=== PATIENT | male | born 1990 | race Caucasian/White ===

== ENCOUNTER 2016-12-14 23:30 | Inpatient (IN) | payer MEDICAID ==
[2016-12-15] MEDS ORDERED: ZOLPIDEM TARTRATE 10 MG TABLET PO PRN (01:30)
[2016-12-15] MEDS ORDERED: HALOPERIDOL 5 MG TABLET PO PRN (01:30)
[2016-12-15 07:00] LABS: BASOPHILS % (AUTO) 0.4 % (0.0-2.0); EOSINOPHILS % (AUTO) 5.2 % (1.0-6.0); HEMATOCRIT 41.4 % (41-53); HEMOGLOBIN 13.9 g/dL (13.5-17.5); LYMPHOCYTES # (AUTO) 1.1 K/uL (1.0-4.8); LYMPHOCYTES % (AUTO) 30.7 % (22.0-44.0); MEAN CORPUSCULAR HEMOGLOBIN 31.9 pg (26.0-34.0); MEAN CORPUSCULAR HGB CONC 33.5 G/dL (31.0-37.0); MEAN CORPUSCULAR VOLUME 95 fL (80-100); MONOCYTES # (AUTO) 0.4 K/uL (0.1-1.0); MONOCYTES % (AUTO) 11.4 % (2.0-9.0); NEUTROPHILS % (AUTO) 52.3 % (40.0-70.0); PLATELET COUNT (AUTO) 280 K/uL (150-450); RED BLOOD CELL COUNT(AUTO) 4.35 MIL/uL (4.50-5.90); RED CELL DISTRIBUTION WIDTH 12.8 % (11.5-14.5); WHITE BLOOD COUNT (AUTO) 3.7 K/uL (4.5-11.0)
[2016-12-15 07:20] LABS: ALANINE AMINOTRANSFERASE 16 U/L (12-78); ALBUMIN 3.3 g/dL (3.4-5.0); ANION GAP 7 mmol/L (8-16); ASPARTATE AMINOTRANSFERASE 11 U/L (15-37); BILIRUBIN,TOTAL 0.3 mg/dL (0.1-1.0); CALCIUM, TOTAL 8.3 mg/dL (8.8-10.5); CARBON DIOXIDE 29 mmol/L (22-29); CHLORIDE 105 mmol/L (98-107); CREATININE 0.85 mg/dL (0.60-1.30); GLOMERULAR FILTR. RATE CALC > 60 mL/min (>60); POTASSIUM 4.2 mmol/L (3.5-5.1); SODIUM SERUM 141 mmol/L (136-145); TOTAL PROTEIN, SERUM 6.4 g/dL (6.4-8.2); UREA NITROGEN, BLOOD 12 mg/dL (7-18)
[2016-12-15] MEDS: LORazepam 2 MG TABLET PO PRN (10:47)
[2016-12-15 11:40] VITALS: BP 111/65
[2016-12-16] MEDS ORDERED: INFLUENZA VIRUS VACCINE QVS 2016-17 (3YR+)/PF 60 MCG/0.5 ML SYRINGE IM ONE (06:15)
[2016-12-16] MEDS ORDERED: IBUPROFEN 400 MG TABLET PO PRN (08:00)
[2016-12-16] MEDS ORDERED: ACETAMINOPHEN 325 MG TABLET PO PRN (08:00)
[2016-12-16 08:58] VITALS: BP 103/59
[2016-12-16] MEDS: HALOPERIDOL 5 MG TABLET PO SCH ×2 (09:50→16:54)
[2016-12-16] MEDS: BENZTROPINE MESYLATE 0.5 MG TABLET PO SCH ×2 (09:50→16:54)
[2016-12-16 16:22] VITALS: BP 110/62
[2016-12-16 20:38] VITALS: BP 121/67
[2016-12-16] MEDS: LORazepam 2 MG TABLET PO PRN (20:56)
[2016-12-16 21:38] VITALS: BP 119/75
[2016-12-16] MEDS ORDERED: OxyCODONE HCL/ACETAMINOPHEN 5-325 MG TABLET PO ONE (21:45)
[2016-12-16] MEDS ORDERED: BENZOCAINE 10% 7 GM GEL TP PRN (21:45)
[2016-12-17 07:34] LABS: HEMOGLOBIN A1C 5.2 % (4.5-6.2)
[2016-12-17 08:00] LABS: CHOL/HDL RATIO 2.2 (4.2-7.3); THYROID STIMULATING HORMONE 2.04 uIU/mL (0.36-3.74)
[2016-12-17 08:30] VITALS: BP 108/65
[2016-12-17] MEDS ORDERED: BENZ0.5T6 PO (10:22)
[2016-12-17] MEDS ORDERED: HALO5 PO (10:22)
[2016-12-17] MEDS: HALOPERIDOL 5 MG TABLET PO SCH (10:38)
[2016-12-17] MEDS: BENZTROPINE MESYLATE 0.5 MG TABLET PO SCH (10:38)
== END 2016-12-17 14:15 | disposition home or self-care (01) | DRG 751 ==
LOC: 3EC 23:30
PROVIDERS: ADMIT Psychiatry & Neurology Psychiatry; ATTEND Psychiatry & Neurology Psychiatry
DX: F29 Unspecified psychosis not due to a substance or known physiological condition (principal); R45.851 Suicidal ideations; F15.20 Other stimulant dependence, uncomplicated; F25.9 Schizoaffective disorder, unspecified; R45.850 Homicidal ideations; F60.3 Borderline personality disorder; F31.9 Bipolar disorder, unspecified; F41.9 Anxiety disorder, unspecified; F10.10 Alcohol abuse, uncomplicated; F17.200 Nicotine dependence, unspecified, uncomplicated; Z91.14 Patient's other noncompliance with medication regimen; Z59.0 Homelessness; Z88.2 Allergy status to sulfonamides; Z88.1 Allergy status to other antibiotic agents; Z71.41 Alcohol abuse counseling and surveillance of alcoholic; Z71.51 Drug abuse counseling and surveillance of drug abuser; Z28.21 Immunization not carried out because of patient refusal; Z62.819 Personal history of unspecified abuse in childhood
CPT/HCPCS: 83036; 84443

== ENCOUNTER 2017-01-12 18:00 | Inpatient (IN) | payer MEDICAID ==
[~2017-01-12] VITALS: Ht 175.3 cm; Wt 63.5 kg
[~2017-01-12 18:00] MED LIST: BENZ0.5T6 PO; HALO5 PO
[2017-01-12] MEDS ORDERED: LORazepam 2 MG/ML VIAL ONE (18:19)
[2017-01-12] MEDS ORDERED: HALOPERIDOL LACTATE 5 MG/ML VIAL ONE (18:19)
[2017-01-12] MEDS ORDERED: DiphenhydrAMINE HCL 50 MG/ML VIAL ONE (18:19)
[2017-01-12] MEDS ORDERED: LORazepam 2 MG/ML VIAL IM ONE (18:30)
[2017-01-12] MEDS ORDERED: HALOPERIDOL LACTATE 5 MG/ML VIAL IM ONE (18:30)
[2017-01-12] MEDS ORDERED: DiphenhydrAMINE HCL 50 MG/ML VIAL IM ONE (18:30)
[2017-01-12] MEDS ORDERED: ZOLPIDEM TARTRATE 10 MG TABLET PO PRN (19:30)
[2017-01-12] MEDS ORDERED: HALOPERIDOL 5 MG TABLET PO PRN (19:30)
[2017-01-12] MEDS ORDERED: LORazepam 2 MG TABLET PO PRN (19:30)
[2017-01-12 19:35] LABS: BASOPHILS % (AUTO) 0.5 % (0.0-2.0); EOSINOPHILS % (AUTO) 1.4 % (1.0-6.0); HEMATOCRIT 37.1 % (41-53); HEMOGLOBIN 12.4 g/dL (13.5-17.5); LYMPHOCYTES # (AUTO) 1.9 K/uL (1.0-4.8); MEAN CORPUSCULAR HEMOGLOBIN 31.9 pg (26.0-34.0); MEAN CORPUSCULAR HGB CONC 33.4 G/dL (31.0-37.0); MEAN CORPUSCULAR VOLUME 95 fL (80-100); MONOCYTES # (AUTO) 1.4 K/uL (0.1-1.0); MONOCYTES % (AUTO) 12.6 % (2.0-9.0); NEUTROPHILS # (AUTO) 7.3 K/uL (1.8-7.7); NEUTROPHILS % (AUTO) 67.5 % (40.0-70.0); PLATELET COUNT (AUTO) 394 K/uL (150-450); RED BLOOD CELL COUNT(AUTO) 3.88 MIL/uL (4.50-5.90); RED CELL DISTRIBUTION WIDTH 13.6 % (11.5-14.5); WHITE BLOOD COUNT (AUTO) 10.8 K/uL (4.5-11.0)
[2017-01-12 19:46] LABS: ANION GAP 10 mmol/L (8-16); CARBON DIOXIDE 28 mmol/L (22-29); CHLORIDE 101 mmol/L (98-107); CREATININE 1.01 mg/dL (0.60-1.30); GLOMERULAR FILTR. RATE CALC > 60 mL/min (>60); POTASSIUM 3.5 mmol/L (3.5-5.1); SODIUM SERUM 139 mmol/L (136-145); UREA NITROGEN, BLOOD 25 mg/dL (7-18)
[2017-01-12 19:52] LABS: ALANINE AMINOTRANSFERASE 29 U/L (12-78); ASPARTATE AMINOTRANSFERASE 30 U/L (15-37); BILIRUBIN,TOTAL 0.8 mg/dL (0.1-1.0); TOTAL PROTEIN, SERUM 7.2 g/dL (6.4-8.2)
[2017-01-12 20:37] LABS: APPEARANCE,URINE CLEAR (CLEAR); GLUCOSE, URINE (UA) NEGATIVE (NEGATIVE); KETONES,URINE 40 mg/dL (NEGATIVE); LEUKOCYTE ESTERASE ,URINE NEGATIVE (NEGATIVE); OCCULT BLOOD,URINE NEGATIVE (NEGATIVE); PROTEIN,URINE NEGATIVE (NEGATIVE)
[2017-01-12 20:39] LABS: ADD UA MICROSCOPIC NO
[2017-01-13 11:37] VITALS: BP 112/78
[2017-01-13] MEDS ORDERED: INFLUENZA VIRUS VACCINE QVS 2016-17 (3YR+)/PF 60 MCG/0.5 ML SYRINGE IM ONE (12:30)
[2017-01-13 16:18] VITALS: BP 118/68
[2017-01-13] MEDS: BENZTROPINE MESYLATE 0.5 MG TABLET PO SCH (22:05)
[2017-01-13] MEDS: HALOPERIDOL 5 MG TABLET PO SCH (22:05)
[2017-01-14 05:59] VITALS: BP 109/63
[2017-01-14 08:03] VITALS: BP 103/71
[2017-01-14] MEDS: HALOPERIDOL 5 MG TABLET PO SCH ×2 (09:01→16:26)
[2017-01-14] MEDS: BENZTROPINE MESYLATE 0.5 MG TABLET PO SCH ×2 (09:01→16:26)
[2017-01-14 16:21] VITALS: BP 131/79
[2017-01-14] MEDS ORDERED: IBUPROFEN 400 MG TABLET PO PRN (22:00)
[2017-01-14] MEDS ORDERED: ACETAMINOPHEN 325 MG TABLET PO PRN (22:00)
[2017-01-15] MEDS: FERROUS SULFATE 325 MG EC TABLET PO SCH ×2 (06:45→12:33)
[2017-01-15] MEDS: BENZTROPINE MESYLATE 0.5 MG TABLET PO SCH (08:12)
[2017-01-15] MEDS: HALOPERIDOL 5 MG TABLET PO SCH (08:13)
[2017-01-15 08:30] VITALS: BP 116/78
[2017-01-15 08:51] LABS: HEMOGLOBIN A1C 4.8 % (4.5-6.2)
[2017-01-15] MEDS ORDERED: FLUoxetine HCL 20 MG CAPSULE PO SCH (09:00)
[2017-01-15 09:26] LABS: CHOL/HDL RATIO 2.1 (4.2-7.3); THYROID STIMULATING HORMONE 0.81 uIU/mL (0.36-3.74)
[2017-01-15] MEDS ORDERED: FERR-89 PO (12:25)
== END 2017-01-15 13:09 | disposition home or self-care (01) | DRG 751 ==
LOC: EMS 18:03 → B3A 01-13 08:59
PROVIDERS: ADMIT Psychiatry & Neurology Psychiatry; ATTEND Psychiatry & Neurology Psychiatry
DX: F29 Unspecified psychosis not due to a substance or known physiological condition (principal); R45.851 Suicidal ideations; F15.20 Other stimulant dependence, uncomplicated; R45.850 Homicidal ideations; F20.9 Schizophrenia, unspecified; F41.9 Anxiety disorder, unspecified; F31.9 Bipolar disorder, unspecified; F17.210 Nicotine dependence, cigarettes, uncomplicated; D64.9 Anemia, unspecified; F10.10 Alcohol abuse, uncomplicated; Z59.0 Homelessness; Z88.1 Allergy status to other antibiotic agents; Z88.2 Allergy status to sulfonamides; Z79.899 Other long term (current) drug therapy; Z71.41 Alcohol abuse counseling and surveillance of alcoholic; Z71.6 Tobacco abuse counseling; Z28.21 Immunization not carried out because of patient refusal
CPT/HCPCS: 83036; 84443; 87081; 96372; 99285; G0480; J1200; J1630; J2060

== ENCOUNTER 2021-06-09 14:32 | Emergency (ER) | payer SELFPAY ==
[~2021-06-09] VITALS: Ht 175.3 cm; Wt 109.1 kg
[~2021-06-09 14:32] MED LIST changes: +BENZ0.5T44 PO; -BENZ0.5T6 PO; +FERR-89 PO; -HALO5 PO; +HALO5TAB2 PO
[2021-06-09 17:11] LABS: COVID AG,FIA SOURCE NASOPHARYNGEAL
[2021-06-09 18:05] VITALS: BP 132/67
== END 2021-06-09 18:13 | disposition home or self-care (01) ==
LOC: EMS 14:35
DX: A08.4 Viral intestinal infection, unspecified (principal); F31.9 Bipolar disorder, unspecified; F41.9 Anxiety disorder, unspecified; F20.9 Schizophrenia, unspecified; Z79.899 Other long term (current) drug therapy; Z88.2 Allergy status to sulfonamides; Z88.1 Allergy status to other antibiotic agents; Z20.822 Contact with and (suspected) exposure to COVID-19
CPT/HCPCS: 99283

== ENCOUNTER 2023-10-01 18:23 | Inpatient (IN) | payer MEDICAID ==
[~2023-10-01] VITALS: Ht 175.3 cm; Wt 68.0 kg
[~2023-10-01 18:23] MED LIST changes: -BENZ0.5T44 PO; +BENZ0.5T6 PO; -FERR-89 PO; +FERR325T27 PO
[2023-10-01 19:39] LABS: COVID AG,FIA SOURCE NASAL SWAB
[2023-10-01 19:45] LABS: PH,URINE DRUG SCREEN 5.5 (5.0-8.0)
[2023-10-01 19:50] LABS: ALCOHOL, URINE DRUG SCREEN NEGATIVE (NEGATIVE); AMPHET/METH SCREEN,URINE POSITIVE (NEGATIVE); BARBITURATE SCREEN, URINE NEGATIVE (NEGATIVE); BENZODIAZEPINES SCREEN,URINE NEGATIVE (NEGATIVE); CANNABINOID SCREEN,URINE POSITIVE (NEGATIVE); COCAINE SCREEN,URINE NEGATIVE (NEGATIVE); METHADONE SCREEN, URINE NEGATIVE (NEGATIVE); OPIATE SCREEN,URINE NEGATIVE (NEGATIVE); PHENCYCLIDINE SCREEN,URINE NEGATIVE (NEGATIVE)
[2023-10-01 19:58] LABS: SARS-COV2 (COVID) ANTIGEN,FIA Negative (Negative)
[2023-10-02] MEDS ORDERED: ZOLPIDEM TARTRATE 10 MG TABLET PO PRN (00:45)
[2023-10-02] MEDS: HALOPERIDOL 5 MG TABLET PO PRN (10:29)
[2023-10-02] MEDS: LORazepam 1 MG TABLET PO PRN (10:29)
[2023-10-02] MEDS ORDERED: OLANZapine 5 MG TABLET PO ONE ×2 (11:00→11:30)
[2023-10-02] MEDS ORDERED: LORazepam 2 MG TABLET PO ONE ×2 (11:00→11:30)
[2023-10-02 18:46] VITALS: BP 110/76; PULSE 76; RESP 18; TEMP 97.6; O2SAT 100
[2023-10-02] MEDS ORDERED: NALO4SPR NASAL (20:10)
[2023-10-02] MEDS ORDERED: OXCA150T27 PO (20:10)
[2023-10-02] MEDS ORDERED: BUSP30TA2 PO (20:10)
[2023-10-02] MEDS ORDERED: GABA-1181 PO (20:10)
[2023-10-02] MEDS ORDERED: ZIPR40CA38 PO (20:10)
[2023-10-02] MEDS ORDERED: BUPR1FIL3 SL (20:10)
[2023-10-02] MEDS ORDERED: PNEUMOCOCCAL VACCINE POLYVALENT 0.5 ML SYRINGE [PPSV23] IM. ONE (20:15)
[2023-10-02] MEDS ORDERED: INFLUENZA VIRUS VACCINE QVS 2023-24 (6MO+)/PF 60 MCG/0.5 ML SYRINGE IM. ONE (20:15)
[2023-10-02 20:19] VITALS: RESP 18
[2023-10-03] MEDS: LORazepam 1 MG TABLET PO PRN ×3 (08:28→17:36)
[2023-10-03] MEDS: HALOPERIDOL 5 MG TABLET PO PRN ×3 (08:28→17:36)
[2023-10-03 08:35] VITALS: BP 108/62; PULSE 97; RESP 18; TEMP 97.6; O2SAT 97
[2023-10-03 20:22] VITALS: BP 134/87; PULSE 85; RESP 19; TEMP 98.1; O2SAT 98
[2023-10-04] MEDS ORDERED: ZIPRASIDONE HCL 80 MG CAPSULE PO SCH (07:00)
[2023-10-04] MEDS ORDERED: BusPIRone HCL 15 MG TABLET PO SCH (09:00)
[2023-10-04] MEDS ORDERED: DIVALPROEX SODIUM 500 MG DR TABLET PO SCH (09:00)
[2023-10-04] MEDS ORDERED: LITHIUM CARBONATE 300 MG CAPSULE PO SCH (09:00)
[2023-10-04] MEDS ORDERED: BUSP15 PO (09:51)
[2023-10-04] MEDS ORDERED: DIVA-112 PO (09:57)
[2023-10-04] MEDS ORDERED: LITH300C3 PO (09:57)
[2023-10-04] MEDS ORDERED: ZIPR80CA9 PO (09:59)
== END 2023-10-04 10:30 | disposition home or self-care (01) | DRG 750 ==
LOC: EMS 18:24 → B2S 10-02 16:59
PROVIDERS: ADMIT Psychiatry & Neurology Psychiatry; ATTEND Psychiatry & Neurology Psychiatry
PROC: 2W38X2Z Immobilization of Right Upper Extremity using Cast (ICD-10-PCS; principal; 2023-10-02)
DX: F25.9 Schizoaffective disorder, unspecified (principal); R45.851 Suicidal ideations; S42.401A Unspecified fracture of lower end of right humerus, initial encounter for closed fracture; F10.90 Alcohol use, unspecified, uncomplicated; F19.10 Other psychoactive substance abuse, uncomplicated; G47.00 Insomnia, unspecified; I10 Essential (primary) hypertension; K59.00 Constipation, unspecified; W18.39XA Other fall on same level, initial encounter; Z20.822 Contact with and (suspected) exposure to COVID-19; F41.9 Anxiety disorder, unspecified; F31.9 Bipolar disorder, unspecified; Z87.891 Personal history of nicotine dependence; Z88.2 Allergy status to sulfonamides; Z79.899 Other long term (current) drug therapy; Y93.89 Activity, other specified; Y92.89 Other specified places as the place of occurrence of the external cause; Y99.8 Other external cause status
CPT/HCPCS: 29240; 80307

== ENCOUNTER 2024-02-08 12:53 | Emergency (ER) | payer MEDICAID ==
[~2024-02-08] VITALS: Ht 175.3 cm; Wt 79.5 kg
[~2024-02-08 12:53] MED LIST changes: -BENZ0.5T6 PO; +BUSP15 PO; +DIVA-112 PO; -FERR325T27 PO; -HALO5TAB2 PO; +LITH300C3 PO; +NALO4SPR NASAL; +OXCA150T27 PO; +ZIPR80CA9 PO
[2024-02-08] MEDS ORDERED: HYDR30CR3 TP (15:24)
[2024-02-08] MEDS ORDERED: CLOT15CR29 TP (15:24)
[2024-02-08] MEDS ORDERED: TRAM50TA5 PO (15:24)
[2024-02-08] MEDS ORDERED: IBUP-1554 PO (15:24)
[2024-02-08] MEDS ORDERED: ACET-66 PO (15:24)
[2024-02-08 15:45] VITALS: BP 142/82; PULSE 72; RESP 18; TEMP 98.4
== END 2024-02-08 15:57 | disposition home or self-care (01) ==
LOC: EMS 12:53
DX: S52.202A Unspecified fracture of shaft of left ulna, initial encounter for closed fracture (principal); K60.4 Rectal fistula; F32.9 Major depressive disorder, single episode, unspecified; L24.9 Irritant contact dermatitis, unspecified cause; F41.9 Anxiety disorder, unspecified; F17.210 Nicotine dependence, cigarettes, uncomplicated; F12.90 Cannabis use, unspecified, uncomplicated; Z88.1 Allergy status to other antibiotic agents; Z88.2 Allergy status to sulfonamides; X58.XXXA Exposure to other specified factors, initial encounter; Y93.89 Activity, other specified; Y92.89 Other specified places as the place of occurrence of the external cause; Y99.8 Other external cause status
CPT/HCPCS: 99283

== ENCOUNTER 2024-03-08 09:35 | Emergency (ER) | payer MEDICAID ==
[~2024-03-08] VITALS: Ht 175.3 cm; Wt 79.5 kg
[~2024-03-08 09:35] MED LIST changes: +ACET-66 PO; +CLOT15CR29 TP; +HYDR30CR3 TP; +IBUP-1554 PO; +TRAM50TA5 PO
[2024-03-08 10:06] VITALS: BP 150/97; PULSE 124; RESP 20; TEMP 98.4
[2024-03-08] MEDS ORDERED: BusPIRone HCL 15 MG TABLET PO ONE (11:00)
[2024-03-08] MEDS ORDERED: OXcarbazepine 300 MG TABLET PO ONE (11:00)
[2024-03-08] MEDS ORDERED: OXCA150T27 PO (11:05)
[2024-03-08] MEDS ORDERED: BUSP15 PO (11:05)
[2024-03-08] MEDS ORDERED: ZIPR80CA9 PO (11:05)
[2024-03-08] MEDS: LORazepam 2 MG TABLET PO ONE (11:12)
[2024-03-08] MEDS: ZIPRASIDONE HCL 40 MG CAPSULE PO ONE (11:13)
== END 2024-03-08 12:05 | disposition home or self-care (01) ==
LOC: EMS 09:35
DX: F20.9 Schizophrenia, unspecified (principal); F41.9 Anxiety disorder, unspecified; F15.10 Other stimulant abuse, uncomplicated; F31.9 Bipolar disorder, unspecified; F17.210 Nicotine dependence, cigarettes, uncomplicated; F12.90 Cannabis use, unspecified, uncomplicated; Z88.2 Allergy status to sulfonamides; Z88.1 Allergy status to other antibiotic agents
CPT/HCPCS: 99283

== ENCOUNTER 2024-03-16 13:12 | Inpatient (IN) | payer MEDICAID ==
[~2024-03-16] VITALS: Ht 175.3 cm; Wt 78.3 kg
[2024-03-16] MEDS: LORazepam 2 MG/ML VIAL IM ONE (13:37)
[2024-03-16 14:20] LABS: BASOPHILS % (AUTO) 0.6 % (0.0-2.0); EOSINOPHILS % (AUTO) 1.6 % (1.0-6.0); HEMATOCRIT 35.3 % (41-53); HEMOGLOBIN 11.9 g/dL (13.5-17.5); LYMPHOCYTES # (AUTO) 1.3 K/uL (1.0-4.8); LYMPHOCYTES % (AUTO) 12.8 % (22.0-44.0); MEAN CORPUSCULAR HEMOGLOBIN 31.9 pg (26.0-34.0); MEAN CORPUSCULAR HGB CONC 33.6 G/dL (31.0-37.0); MEAN CORPUSCULAR VOLUME 95 fL (80-100); MONOCYTES # (AUTO) 0.9 K/uL (0.1-1.0); NEUTROPHILS # (AUTO) 7.5 K/uL (1.8-7.7); PLATELET COUNT (AUTO) 459 K/uL (150-450); RED BLOOD CELL COUNT(AUTO) 3.72 MIL/uL (4.50-5.90); RED CELL DISTRIBUTION WIDTH 13.2 % (11.5-14.5); WHITE BLOOD COUNT (AUTO) 9.8 K/uL (4.5-11.0)
[2024-03-16 14:35] LABS: ANION GAP 12 mmol/L (8-16); CALCIUM, TOTAL 8.6 mg/dL (8.8-10.5); CARBON DIOXIDE 26 mmol/L (22-29); CHLORIDE 106 mmol/L (98-107); CREATININE 1.01 mg/dL (0.60-1.30); GLOMERULAR FILTR. RATE CALC > 60 mL/min (>60); GLUCOSE,RANDOM 74 mg/dL (70-110); POTASSIUM 3.7 mmol/L (3.5-5.1); SODIUM SERUM 144 mmol/L (136-145); UREA NITROGEN, BLOOD 17 mg/dL (7-18)
[2024-03-16 14:36] LABS: ALCOHOL, BLOOD (SERUM) < 3 mg/dL (0-10)
[2024-03-16] MEDS: DiphenhydrAMINE HCL 50 MG CAPSULE PO ONE (15:17)
[2024-03-16] MEDS: HALOPERIDOL 5 MG TABLET PO ONE (15:17)
[2024-03-16 16:29] LABS: COVID AG,FIA SOURCE NASAL SWAB
[2024-03-16 16:51] LABS: SARS-COV2 (COVID) ANTIGEN,FIA Negative (Negative)
[2024-03-16 23:20] VITALS: BP 141/67; PULSE 94; RESP 18; TEMP 97.8
[2024-03-17] MEDS ORDERED: IBUPROFEN 400 MG TABLET PO PRN (07:45)
[2024-03-17] MEDS ORDERED: CloNIDine HCL 0.1 MG TABLET PO PRN (07:45)
[2024-03-17] MEDS ORDERED: MAGNESIUM HYDROXIDE SUSPENSION 30 ML UDCUP PO PRN (07:45)
[2024-03-17] MEDS ORDERED: DOCUSATE SODIUM 100 MG CAPSULE PO PRN (07:45)
[2024-03-17] MEDS ORDERED: ALBUTEROL SULFATE HFA 90 MCG/PUFF 8 GM INHALER IH PRN (07:45)
[2024-03-17] MEDS ORDERED: PETROLATUM,WHITE 28 GM JELLY TP PRN (07:45)
[2024-03-17] MEDS ORDERED: MAG HYDROX/ALUMINUM HYD/SIMETH ES 30 ML SUSPENSION UDCUP PO PRN (07:45)
[2024-03-17] MEDS ORDERED: TraMADol HCL 50 MG TABLET PO PRN (07:45)
[2024-03-17] MEDS ORDERED: GuaiFENesin/D-METHORPHAN [SUGAR-FREE] 200-20MG/10 ML SYRUP UDCUP PO PRN (07:45)
[2024-03-17] MEDS ORDERED: ACETAMINOPHEN 325 MG TABLET PO PRN (07:45)
[2024-03-17] MEDS ORDERED: NICOTINE 14 MG/24 HOUR PATCH TD PRN (07:45)
[2024-03-17] MEDS ORDERED: LOPERAMIDE HCL 2 MG CAPSULE PO PRN (07:45)
[2024-03-17] MEDS: LORazepam 2 MG TABLET PO PRN (08:30)
[2024-03-17] MEDS: HYDROCORTISONE 2.5% 30 GM CREAM TP SCH (09:00)
[2024-03-17] MEDS: BACITRACIN 28 GM OINTMENT TP SCH (09:00)
[2024-03-17 10:43] VITALS: BP 103/50; PULSE 94; RESP 19; TEMP 98
[2024-03-17] MEDS: BusPIRone HCL 15 MG TABLET PO SCH (13:54)
[2024-03-17] MEDS: DIVALPROEX SODIUM 500 MG DR TABLET PO SCH (17:30)
[2024-03-17] MEDS: LITHIUM CARBONATE 300 MG CAPSULE PO SCH (17:31)
[2024-03-17] MEDS: ZIPRASIDONE HCL 80 MG CAPSULE PO SCH (17:36)
[2024-03-17] MEDS: HALOPERIDOL 5 MG TABLET PO PRN (20:17)
[2024-03-17 20:45] VITALS: BP 119/66; PULSE 94; RESP 18; TEMP 97.7
[2024-03-17] MEDS: ZOLPIDEM TARTRATE 10 MG TABLET PO PRN (21:18)
[2024-03-18] MEDS: ONDANSETRON HCL 4 MG TABLET PO PRN (07:46)
[2024-03-18 09:13] LABS: HEMOGLOBIN A1C 5.3 % (3.8-5.6)
[2024-03-18 09:19] LABS: CHOL/HDL RATIO 2.3 (4.2-7.3)
[2024-03-18 09:29] LABS: THYROID STIMULATING HORMONE 1.12 uIU/mL (0.36-3.74)
[2024-03-18 09:30] VITALS: BP 125/63; PULSE 62; RESP 19; TEMP 98
[2024-03-18 20:54] VITALS: RESP 18
[2024-03-19 09:00] VITALS: BP 117/80; PULSE 90; RESP 18; TEMP 97.8
[2024-03-19] MEDS ORDERED: ZIPR80CA9 PO (14:36)
[2024-03-19] MEDS ORDERED: BUSP15 PO (14:36)
[2024-03-19] MEDS ORDERED: DIVA-112 PO (14:36)
[2024-03-19] MEDS ORDERED: LITH300C3 PO (14:36)
== END 2024-03-19 18:28 | disposition home or self-care (01) | DRG 750 ==
LOC: EMS 13:12 → 3EC 19:40
PROVIDERS: ADMIT Psychiatry & Neurology Psychiatry; ATTEND Psychiatry & Neurology Psychiatry
PROC: 0HQ0XZZ Repair Scalp Skin, External Approach (ICD-10-PCS; principal; 2024-03-16)
PROC: GZHZZZZ Group Psychotherapy (ICD-10-PCS; 2024-03-17)
PROC: GZ51ZZZ Individual Psychotherapy, Behavioral (ICD-10-PCS; 2024-03-17)
DX: F25.0 Schizoaffective disorder, bipolar type (principal); D64.9 Anemia, unspecified; F15.10 Other stimulant abuse, uncomplicated; S01.01XA Laceration without foreign body of scalp, initial encounter; F41.9 Anxiety disorder, unspecified; Z20.822 Contact with and (suspected) exposure to COVID-19; Z87.891 Personal history of nicotine dependence; Z88.2 Allergy status to sulfonamides; W22.8XXA Striking against or struck by other objects, initial encounter; Y93.89 Activity, other specified; Y92.89 Other specified places as the place of occurrence of the external cause; Y99.8 Other external cause status
CPT/HCPCS: 70450; 80048; 80061; 83036; 84443; 85025; 99285; G0480; J2060; Q0162

== ENCOUNTER 2024-06-04 21:22 | Emergency (ER) | payer MEDICAID ==
[~2024-06-04] VITALS: Ht 172.7 cm; Wt 73.6 kg
[~2024-06-04 21:22] MED LIST changes: -ACET-66 PO; -CLOT15CR29 TP; -HYDR30CR3 TP; -IBUP-1554 PO; -NALO4SPR NASAL; -OXCA150T27 PO; -TRAM50TA5 PO
[2024-06-04 21:40] VITALS: BP 121/64; PULSE 121; RESP 16; TEMP 97.5
== END 2024-06-05 01:44 | disposition home or self-care (01) ==
LOC: EMS 21:22
DX: F41.9 Anxiety disorder, unspecified (principal); F15.10 Other stimulant abuse, uncomplicated; F25.0 Schizoaffective disorder, bipolar type; F17.210 Nicotine dependence, cigarettes, uncomplicated; F12.90 Cannabis use, unspecified, uncomplicated; Z88.2 Allergy status to sulfonamides; Z88.1 Allergy status to other antibiotic agents; Z98.890 Other specified postprocedural states
CPT/HCPCS: 99281; Z7502

== ENCOUNTER 2024-06-20 17:40 | Inpatient (IN) | payer MEDICAID ==
[~2024-06-20] VITALS: Ht 170.2 cm; Wt 65.8 kg
[2024-06-20 23:33] LABS: BASOPHILS % (AUTO) 1.2 % (0.0-2.0); EOSINOPHILS % (AUTO) 2.4 % (1.0-6.0); HEMATOCRIT 39.4 % (41-53); HEMOGLOBIN 12.9 g/dL (13.5-17.5); LYMPHOCYTES # (AUTO) 1.4 K/uL (1.0-4.8); LYMPHOCYTES % (AUTO) 23.9 % (22.0-44.0); MEAN CORPUSCULAR HEMOGLOBIN 30.5 pg (26.0-34.0); MEAN CORPUSCULAR HGB CONC 32.8 G/dL (31.0-37.0); MEAN CORPUSCULAR VOLUME 93 fL (80-100); MONOCYTES # (AUTO) 0.7 K/uL (0.1-1.0); NEUTROPHILS # (AUTO) 3.4 K/uL (1.8-7.7); NEUTROPHILS % (AUTO) 59.5 % (40.0-70.0); PLATELET COUNT (AUTO) 461 K/uL (150-450); RED BLOOD CELL COUNT(AUTO) 4.23 MIL/uL (4.50-5.90); RED CELL DISTRIBUTION WIDTH 15.6 % (11.5-14.5); WHITE BLOOD COUNT (AUTO) 5.7 K/uL (4.5-11.0)
[2024-06-20 23:42] LABS: ANION GAP 9 mmol/L (8-16); CALCIUM, TOTAL 8.2 mg/dL (8.8-10.5); CARBON DIOXIDE 28 mmol/L (22-29); CHLORIDE 103 mmol/L (98-107); CREATININE 0.85 mg/dL (0.60-1.30); GLOMERULAR FILTR. RATE CALC > 60 mL/min (>60); GLUCOSE,RANDOM 89 mg/dL (70-110); POTASSIUM 3.7 mmol/L (3.5-5.1); SODIUM SERUM 140 mmol/L (136-145); UREA NITROGEN, BLOOD 8 mg/dL (7-18)
[2024-06-20 23:46] LABS: ALCOHOL, BLOOD (SERUM) < 3 mg/dL (0-10)
[2024-06-20] MEDS: LORazepam 1 MG TABLET PO ONE (23:47)
[2024-06-20 23:54] LABS: COVID AG,FIA SOURCE NASAL SWAB
[2024-06-21 00:27] LABS: SARS-COV2 (COVID) ANTIGEN,FIA Negative (Negative)
[2024-06-21 00:30] LABS: AMPHET/METH SCREEN,URINE NEGATIVE (NEGATIVE); BARBITURATE SCREEN, URINE NEGATIVE (NEGATIVE); BENZODIAZEPINES SCREEN,URINE NEGATIVE (NEGATIVE); CANNABINOID SCREEN,URINE POSITIVE (NEGATIVE); COCAINE SCREEN,URINE NEGATIVE (NEGATIVE); METHADONE SCREEN, URINE NEGATIVE (NEGATIVE); OPIATE SCREEN,URINE NEGATIVE (NEGATIVE); PHENCYCLIDINE SCREEN,URINE NEGATIVE (NEGATIVE)
[2024-06-21 01:00] LABS: ALCOHOL, URINE DRUG SCREEN NEGATIVE (NEGATIVE)
[2024-06-21 02:40] VITALS: O2SAT 99
[2024-06-21] MEDS: LORazepam 2 MG TABLET PO PRN (03:52)
[2024-06-21 04:17] VITALS: BP 129/81; PULSE 104; RESP 18; TEMP 96.6; O2SAT 98
[2024-06-21] MEDS ORDERED: PNEUMOCOCCAL VACCINE POLYVALENT 0.5 ML SYRINGE [PPSV23] IM. ONE (06:00)
[2024-06-21 08:11] VITALS: BP 123/60; PULSE 91; RESP 18; TEMP 97.9; O2SAT 100
[2024-06-21] MEDS ORDERED: IBUPROFEN 600 MG TABLET PO PRN (09:00)
[2024-06-21] MEDS ORDERED: ALBUTEROL SULFATE HFA 90 MCG/PUFF 8 GM INHALER IH PRN (09:00)
[2024-06-21] MEDS ORDERED: PETROLATUM,WHITE 28 GM JELLY TP PRN (09:00)
[2024-06-21] MEDS ORDERED: BACITRACIN 28 GM OINTMENT TP PRN (09:00)
[2024-06-21] MEDS ORDERED: DOCUSATE SODIUM 100 MG CAPSULE PO PRN (09:00)
[2024-06-21] MEDS ORDERED: MAGNESIUM HYDROXIDE SUSPENSION 30 ML UDCUP PO PRN ×2 (09:00→15:30)
[2024-06-21] MEDS ORDERED: ONDANSETRON 4 MG TABLET PO PRN (09:00)
[2024-06-21] MEDS ORDERED: ACETAMINOPHEN 325 MG TABLET PO PRN ×2 (09:00→15:30)
[2024-06-21] MEDS ORDERED: BENZOCAINE/MENTHOL LOZENGE PO PRN (09:00)
[2024-06-21] MEDS ORDERED: LOPERAMIDE HCL 2 MG CAPSULE PO PRN ×2 (09:00→15:30)
[2024-06-21] MEDS ORDERED: CloNIDine HCL 0.1 MG TABLET PO PRN (09:00)
[2024-06-21] MEDS ORDERED: MAG HYDROX/ALUMINUM HYD/SIMETH ES 30 ML SUSPENSION UDCUP PO PRN ×2 (09:00→15:30)
[2024-06-21] MEDS ORDERED: PALIPERIDONE PALMITATE 234 MG/1.5 ML SYRINGE IM ONE (15:30)
[2024-06-21] MEDS ORDERED: OLANZapine 5 MG RAPDIS TABLET PO PRN (15:30)
[2024-06-21] MEDS ORDERED: HydrOXYzine PAMOATE 50 MG CAPSULE PO PRN (15:30)
[2024-06-21] MEDS ORDERED: TUBERCULIN, PURIFIED PROTEIN DERIVATIVE 5 TU/0.1 ML SYRINGE ID ONE (15:30)
[2024-06-21] MEDS ORDERED: PROMETHAZINE HCL 25 MG TABLET PO PRN (15:30)
[2024-06-21] MEDS ORDERED: GuaiFENesin/D-METHORPHAN [SUGAR-FREE] 200-20MG/10 ML SYRUP UDCUP PO PRN (15:30)
[2024-06-21] MEDS: THIAMINE 100 MG TABLET PO SCH (17:58)
[2024-06-21 20:35] VITALS: BP 129/74; PULSE 94; RESP 18; TEMP 97.5; O2SAT 100
[2024-06-21] MEDS: MELATONIN 5 MG TABLET PO SCH (20:38)
[2024-06-21] MEDS: OLANZapine 5 MG RAPDIS TABLET PO SCH (20:45)
[2024-06-21] MEDS: DIVALPROEX SODIUM 500 MG ER TABLET PO SCH (20:45)
[2024-06-22] MEDS: ZOLPIDEM TARTRATE 10 MG TABLET PO PRN (00:49)
[2024-06-22] MEDS: ZIPRASIDONE HCL 40 MG CAPSULE PO SCH (06:39)
[2024-06-22 08:14] VITALS: BP 105/60; PULSE 82; RESP 19; TEMP 95.9; O2SAT 100
[2024-06-22] MEDS: OXcarbazepine 300 MG TABLET PO SCH (08:20)
[2024-06-22] MEDS: FOLIC ACID 1 MG TABLET PO SCH (08:20)
[2024-06-22] MEDS: MULTIVITAMINS WITH MINERALS, THERAPEUTIC TABLET PO SCH (08:20)
[2024-06-22] MEDS: NALTREXONE HCL 50 MG TABLET PO SCH (08:21)
[2024-06-22] MEDS: BusPIRone HCL 15 MG TABLET PO SCH (08:21)
[2024-06-22 09:01] LABS: HEMOGLOBIN A1C 5.5 % (3.8-5.6)
[2024-06-22 09:21] LABS: CHOL/HDL RATIO 2.1 (4.2-7.3); FREE T4 (FREE THYROXINE) 1.02 ng/dL (0.76-1.46); THYROID STIMULATING HORMONE 2.84 uIU/mL (0.36-3.74)
[2024-06-22 09:25] LABS: APPEARANCE,URINE HAZY (CLEAR); BILIRUBIN,URINE NEGATIVE (NEGATIVE); COLOR,URINE LIGHT YELLOW (YELLOW); GLUCOSE, URINE (UA) NEGATIVE (NEGATIVE); KETONES,URINE NEGATIVE (NEGATIVE); LEUKOCYTE ESTERASE ,URINE NEGATIVE (NEGATIVE); NITRATE,URINE NEGATIVE (NEGATIVE); OCCULT BLOOD,URINE NEGATIVE (NEGATIVE); PH,URINE 7.5 (5.0-8.0); PROTEIN,URINE NEGATIVE (NEGATIVE); SPECIFIC GRAVITIY, URINE 1.014 (1.003-1.030); UROBILINOGEN,URINE <=1.0 mg/dL (<=1.0)
[2024-06-22 20:30] VITALS: BP 115/77; PULSE 86; RESP 18; TEMP 97.8
[2024-06-22] MEDS: OLANZapine 5 MG RAPDIS TABLET PO PRN (20:50)
[2024-06-23] MEDS: OMEPRAZOLE 20 MG CAPSULE PO PRN (07:08)
[2024-06-23] MEDS: ZIPRASIDONE HCL 60 MG CAPSULE PO SCH (07:11)
[2024-06-23 08:07] VITALS: BP 115/64; PULSE 64; RESP 16; TEMP 98.1; O2SAT 98
[2024-06-23 18:00] VITALS: BP 149/83; PULSE 100
[2024-06-23 20:13] VITALS: BP 149/83; PULSE 100; RESP 18; TEMP 97.8; O2SAT 98
[2024-06-24 08:21] VITALS: BP 120/60; PULSE 68; RESP 17; TEMP 97.7; O2SAT 99
[2024-06-24] MEDS ORDERED: BUSP15 PO (16:51)
[2024-06-24] MEDS ORDERED: ZIPR60CA29 PO (16:52)
[2024-06-24] MEDS ORDERED: MELA5TAB21 PO (16:57)
[2024-06-24] MEDS ORDERED: OXCA150T28 PO (16:59)
[2024-06-25] MEDS ORDERED: PALIPERIDONE PALMITATE 156 MG/ML SYRINGE IM ONE (09:00)
== END 2024-06-24 18:00 | disposition home or self-care (01) | DRG 750 ==
LOC: EMS 17:40 → B2S 06-21 03:12
PROVIDERS: ADMIT Psychiatry & Neurology Psychiatry; ATTEND Psychiatry & Neurology Psychiatry
PROC: GZHZZZZ Group Psychotherapy (ICD-10-PCS; principal; 2024-06-21)
PROC: GZ58ZZZ Individual Psychotherapy, Cognitive-Behavioral (ICD-10-PCS; 2024-06-21)
PROC: GZ56ZZZ Individual Psychotherapy, Supportive (ICD-10-PCS; 2024-06-21)
DX: F20.9 Schizophrenia, unspecified (principal); R45.851 Suicidal ideations; Z91.148 Patient's other noncompliance with medication regimen for other reason; F17.200 Nicotine dependence, unspecified, uncomplicated; G47.00 Insomnia, unspecified; I10 Essential (primary) hypertension; K59.00 Constipation, unspecified; F31.9 Bipolar disorder, unspecified; F19.10 Other psychoactive substance abuse, uncomplicated; F12.10 Cannabis abuse, uncomplicated; F41.0 Panic disorder [episodic paroxysmal anxiety]; F10.90 Alcohol use, unspecified, uncomplicated; F90.9 Attention-deficit hyperactivity disorder, unspecified type; Z20.822 Contact with and (suspected) exposure to COVID-19; Z55.9 Problems related to education and literacy, unspecified; Z59.00 Homelessness unspecified; Z63.9 Problem related to primary support group, unspecified; Z65.3 Problems related to other legal circumstances; Z88.2 Allergy status to sulfonamides; Y90.0 Blood alcohol level of less than 20 mg/100 ml
CPT/HCPCS: 80048; 80061; 80307; 81003; 83036; 84439; 84443; 85025; 86592; 99285; G0480

== ENCOUNTER 2024-06-28 01:57 | Emergency (ER) | payer MEDICAID ==
[~2024-06-28] VITALS: Ht 172.7 cm; Wt 75.0 kg
[~2024-06-28 01:57] MED LIST changes: -DIVA-112 PO; -LITH300C3 PO; +MELA5TAB21 PO; +OXCA150T28 PO; +ZIPR60CA29 PO; -ZIPR80CA9 PO
[2024-06-28 02:00] VITALS: TEMP 98
[2024-06-28] MEDS ORDERED: HYDR-4808 PO (06:15)
[2024-06-28] MEDS: LORazepam 2 MG TABLET PO ONE (06:55)
[2024-06-28 06:58] VITALS: BP 136/100; PULSE 103; RESP 18; O2SAT 99
== END 2024-06-28 07:10 | disposition home or self-care (01) ==
LOC: EMS 01:57
DX: F41.9 Anxiety disorder, unspecified (principal); F31.9 Bipolar disorder, unspecified; F20.9 Schizophrenia, unspecified; F17.210 Nicotine dependence, cigarettes, uncomplicated; F12.90 Cannabis use, unspecified, uncomplicated; F15.90 Other stimulant use, unspecified, uncomplicated; Z98.890 Other specified postprocedural states; Z88.2 Allergy status to sulfonamides; Z88.1 Allergy status to other antibiotic agents
CPT/HCPCS: 99283

== ENCOUNTER 2024-06-30 15:26 | Emergency (ER) | payer MEDICAID ==
[~2024-06-30] VITALS: Ht 175.3 cm; Wt 75.0 kg
[~2024-06-30 15:26] MED LIST changes: +HYDR-4808 PO
[2024-06-30 15:31] VITALS: BP 138/68; PULSE 120; RESP 18; TEMP 98.6; O2SAT 99
[2024-06-30] MEDS ORDERED: HYDR-4527 PO (17:10)
[2024-06-30] MEDS: LORazepam 1 MG TABLET PO ONE (17:10)
== END 2024-06-30 17:29 | disposition home or self-care (01) ==
LOC: EMS 15:28
DX: F41.9 Anxiety disorder, unspecified (principal); Z76.0 Encounter for issue of repeat prescription; F17.210 Nicotine dependence, cigarettes, uncomplicated; F12.90 Cannabis use, unspecified, uncomplicated; F15.10 Other stimulant abuse, uncomplicated; Z88.0 Allergy status to penicillin; Z88.1 Allergy status to other antibiotic agents
CPT/HCPCS: 99283

== ENCOUNTER 2024-07-03 20:14 | Emergency (ER) | payer MEDICAID ==
[~2024-07-03] VITALS: Ht 172.7 cm; Wt 75.9 kg
[~2024-07-03 20:14] MED LIST changes: +HYDR-4527 PO; -MELA5TAB21 PO
[2024-07-03 20:35] VITALS: BP 133/86; PULSE 134; RESP 18; TEMP 98.1; O2SAT 98
[2024-07-04 04:25] LABS: BASOPHILS % (AUTO) 1.1 % (0.0-2.0); EOSINOPHILS % (AUTO) 2.2 % (1.0-6.0); HEMATOCRIT 36.4 % (41-53); HEMOGLOBIN 12.2 g/dL (13.5-17.5); LYMPHOCYTES # (AUTO) 1.1 K/uL (1.0-4.8); LYMPHOCYTES % (AUTO) 18.4 % (22.0-44.0); MEAN CORPUSCULAR HEMOGLOBIN 31.6 pg (26.0-34.0); MEAN CORPUSCULAR HGB CONC 33.4 G/dL (31.0-37.0); MEAN CORPUSCULAR VOLUME 95 fL (80-100); MONOCYTES # (AUTO) 0.6 K/uL (0.1-1.0); MONOCYTES % (AUTO) 9.6 % (2.0-9.0); NEUTROPHILS # (AUTO) 3.9 K/uL (1.8-7.7); NEUTROPHILS % (AUTO) 68.7 % (40.0-70.0); PLATELET COUNT (AUTO) 353 K/uL (150-450); RED BLOOD CELL COUNT(AUTO) 3.85 MIL/uL (4.50-5.90); RED CELL DISTRIBUTION WIDTH 15.5 % (11.5-14.5); WHITE BLOOD COUNT (AUTO) 5.7 K/uL (4.5-11.0)
[2024-07-04 04:32] LABS: ANION GAP 9 mmol/L (8-16); CARBON DIOXIDE 29 mmol/L (22-29); CHLORIDE 104 mmol/L (98-107); CREATININE 0.77 mg/dL (0.60-1.30); GLOMERULAR FILTR. RATE CALC > 60 mL/min (>60); GLUCOSE,RANDOM 107 mg/dL (70-110); POTASSIUM 3.6 mmol/L (3.5-5.1); SODIUM SERUM 142 mmol/L (136-145); UREA NITROGEN, BLOOD 9 mg/dL (7-18)
[2024-07-04] MEDS: LORazepam 1 MG TABLET PO ONE (04:39)
[2024-07-04 04:58] LABS: ALCOHOL, BLOOD (SERUM) < 3 mg/dL (0-10)
[2024-07-04 05:04] LABS: CALCIUM, TOTAL 8.4 mg/dL (8.8-10.5)
== END 2024-07-04 05:57 | disposition home or self-care (01) ==
LOC: EMS 20:14
DX: F41.9 Anxiety disorder, unspecified (principal); F17.210 Nicotine dependence, cigarettes, uncomplicated; F12.90 Cannabis use, unspecified, uncomplicated; F15.10 Other stimulant abuse, uncomplicated; Z88.2 Allergy status to sulfonamides; Z88.1 Allergy status to other antibiotic agents
CPT/HCPCS: 99284; 80048; 85025; 36415; 93005; G0480

== ENCOUNTER 2024-07-09 03:42 | Emergency (ER) | payer MEDICAID ==
[~2024-07-09] VITALS: Ht 172.7 cm; Wt 76.0 kg
[2024-07-09 03:52] VITALS: TEMP 97.8
[2024-07-09 07:30] VITALS: BP 124/75; PULSE 91; RESP 18; O2SAT 98
[2024-07-09 08:50] LABS: COVID AG,FIA SOURCE NASAL SWAB
[2024-07-09 09:14] LABS: SARS-COV2 (COVID) ANTIGEN,FIA Negative (Negative)
== END 2024-07-09 07:55 | disposition home or self-care (01) ==
LOC: EMS 03:43
DX: F41.9 Anxiety disorder, unspecified (principal); F17.210 Nicotine dependence, cigarettes, uncomplicated; F12.90 Cannabis use, unspecified, uncomplicated; F15.10 Other stimulant abuse, uncomplicated; Z88.1 Allergy status to other antibiotic agents; Z88.2 Allergy status to sulfonamides; Z20.822 Contact with and (suspected) exposure to COVID-19
CPT/HCPCS: 99283

== ENCOUNTER 2024-07-09 19:43 | Emergency (ER) | payer MEDICAID ==
[~2024-07-09] VITALS: Ht 172.7 cm; Wt 70.5 kg
[2024-07-09 20:42] VITALS: BP 129/65; PULSE 118; RESP 16; TEMP 98.2; O2SAT 100
[2024-07-09] MEDS: LORazepam 2 MG TABLET PO ONE (23:10)
== END 2024-07-10 | disposition home or self-care (01) ==
LOC: EMS 19:43
DX: F41.0 Panic disorder [episodic paroxysmal anxiety] (principal); F25.0 Schizoaffective disorder, bipolar type; F15.10 Other stimulant abuse, uncomplicated; F17.210 Nicotine dependence, cigarettes, uncomplicated; F12.90 Cannabis use, unspecified, uncomplicated; Z88.1 Allergy status to other antibiotic agents; Z88.2 Allergy status to sulfonamides
CPT/HCPCS: 99283

== ENCOUNTER 2024-07-11 10:17 | Emergency (ER) | payer MEDICAID ==
[~2024-07-11] VITALS: Ht 170.2 cm; Wt 81.0 kg
[2024-07-11 10:31] VITALS: BP 126/73; PULSE 112; RESP 18; TEMP 98.5; O2SAT 99
[2024-07-11] MEDS: LORazepam 1 MG TABLET PO ONE (10:35)
== END 2024-07-11 10:34 | disposition home or self-care (01) ==
LOC: EMS 10:17
DX: F41.9 Anxiety disorder, unspecified (principal); F17.210 Nicotine dependence, cigarettes, uncomplicated; F12.90 Cannabis use, unspecified, uncomplicated; F15.10 Other stimulant abuse, uncomplicated; Z88.1 Allergy status to other antibiotic agents; Z88.2 Allergy status to sulfonamides
CPT/HCPCS: 99283

== ENCOUNTER 2024-07-13 16:01 | Emergency (ER) | payer MEDICAID ==
[~2024-07-13] VITALS: Ht 175.3 cm; Wt 74.5 kg
[2024-07-13 16:34] VITALS: BP 137/75; PULSE 97; RESP 16; TEMP 98.2; O2SAT 99
[2024-07-13 16:48] LABS: BASOPHILS % (AUTO) 0.8 % (0.0-2.0); EOSINOPHILS % (AUTO) 2.3 % (1.0-6.0); HEMATOCRIT 38.7 % (41-53); HEMOGLOBIN 12.8 g/dL (13.5-17.5); LYMPHOCYTES # (AUTO) 1.4 K/uL (1.0-4.8); LYMPHOCYTES % (AUTO) 27.7 % (22.0-44.0); MEAN CORPUSCULAR HEMOGLOBIN 31.3 pg (26.0-34.0); MEAN CORPUSCULAR HGB CONC 33.1 G/dL (31.0-37.0); MEAN CORPUSCULAR VOLUME 94 fL (80-100); MONOCYTES # (AUTO) 0.5 K/uL (0.1-1.0); MONOCYTES % (AUTO) 10.1 % (2.0-9.0); NEUTROPHILS # (AUTO) 3.1 K/uL (1.8-7.7); NEUTROPHILS % (AUTO) 59.1 % (40.0-70.0); PLATELET COUNT (AUTO) 441 K/uL (150-450); RED CELL DISTRIBUTION WIDTH 15.2 % (11.5-14.5); WHITE BLOOD COUNT (AUTO) 5.2 K/uL (4.5-11.0)
[2024-07-13 16:58] LABS: ANION GAP 12 mmol/L (8-16); CALCIUM, TOTAL 8.7 mg/dL (8.8-10.5); CARBON DIOXIDE 27 mmol/L (22-29); CHLORIDE 102 mmol/L (98-107); CREATININE 0.82 mg/dL (0.60-1.30); GLOMERULAR FILTR. RATE CALC > 60 mL/min (>60); GLUCOSE,RANDOM 97 mg/dL (70-110); POTASSIUM 4.3 mmol/L (3.5-5.1); SODIUM SERUM 141 mmol/L (136-145); UREA NITROGEN, BLOOD 15 mg/dL (7-18)
[2024-07-13 17:55] LABS: ALCOHOL, BLOOD (SERUM) < 3 mg/dL (0-10)
== END 2024-07-13 17:08 | disposition home or self-care (01) ==
LOC: EMS 16:01
DX: F41.0 Panic disorder [episodic paroxysmal anxiety] (principal); R44.3 Hallucinations, unspecified; F17.210 Nicotine dependence, cigarettes, uncomplicated; F12.90 Cannabis use, unspecified, uncomplicated; F15.10 Other stimulant abuse, uncomplicated; Z88.1 Allergy status to other antibiotic agents; Z88.2 Allergy status to sulfonamides
CPT/HCPCS: 99283; 80048; 85025; 36415; G0480

== ENCOUNTER 2024-07-14 18:53 | Emergency (ER) | payer MEDICAID ==
[2024-07-14] MEDS: LORazepam 2 MG TABLET PO ONE (20:07)
== END 2024-07-14 22:30 | disposition home or self-care (01) ==
LOC: EMS 18:53
DX: F25.0 Schizoaffective disorder, bipolar type (principal); F41.1 Generalized anxiety disorder; F12.90 Cannabis use, unspecified, uncomplicated; F15.90 Other stimulant use, unspecified, uncomplicated; F17.210 Nicotine dependence, cigarettes, uncomplicated; Z98.890 Other specified postprocedural states; Z88.2 Allergy status to sulfonamides; Z88.1 Allergy status to other antibiotic agents
CPT/HCPCS: 99283

== ENCOUNTER 2024-07-16 03:13 | Emergency (ER) | payer MEDICAID ==
[~2024-07-16] VITALS: Ht 172.7 cm; Wt 76.4 kg
[2024-07-16 03:18] VITALS: TEMP 98.2
[2024-07-16 05:24] VITALS: BP 143/89; PULSE 90; RESP 18; O2SAT 99
[2024-07-16 05:49] LABS: APPEARANCE,URINE TURBID (CLEAR); BILIRUBIN,URINE NEGATIVE (NEGATIVE); COLOR,URINE LIGHT YELLOW (YELLOW); GLUCOSE, URINE (UA) NEGATIVE (NEGATIVE); KETONES,URINE NEGATIVE (NEGATIVE); LEUKOCYTE ESTERASE ,URINE NEGATIVE (NEGATIVE); NITRATE,URINE NEGATIVE (NEGATIVE); OCCULT BLOOD,URINE NEGATIVE (NEGATIVE); PH,URINE 7.5 (5.0-8.0); PH,URINE DRUG SCREEN 7.5 (5.0-8.0); PROTEIN,URINE TRACE mg/dL (NEGATIVE); SPECIFIC GRAVITIY, URINE 1.023 (1.003-1.030); UROBILINOGEN,URINE <=1.0 mg/dL (<=1.0)
[2024-07-16 05:57] LABS: ALCOHOL, URINE DRUG SCREEN NEGATIVE (NEGATIVE); AMPHET/METH SCREEN,URINE POSITIVE (NEGATIVE); BARBITURATE SCREEN, URINE NEGATIVE (NEGATIVE); BENZODIAZEPINES SCREEN,URINE NEGATIVE (NEGATIVE); CANNABINOID SCREEN,URINE POSITIVE (NEGATIVE); COCAINE SCREEN,URINE NEGATIVE (NEGATIVE); METHADONE SCREEN, URINE NEGATIVE (NEGATIVE); OPIATE SCREEN,URINE POSITIVE (NEGATIVE); PHENCYCLIDINE SCREEN,URINE NEGATIVE (NEGATIVE)
== END 2024-07-16 06:06 | disposition left against medical advice (07) ==
LOC: EMS 03:13
DX: F41.9 Anxiety disorder, unspecified (principal); Z53.21 Procedure and treatment not carried out due to patient leaving prior to being seen by health care provider
CPT/HCPCS: 80307; 81003

== ENCOUNTER 2024-07-16 18:41 | Emergency (ER) | payer MEDICAID ==
[~2024-07-16] VITALS: Ht 172.7 cm; Wt 72.7 kg
[2024-07-16 18:44] VITALS: BP 136/81; PULSE 110; RESP 18; TEMP 98; O2SAT 98
[2024-07-16] MEDS: HydrOXYzine PAMOATE 50 MG CAPSULE PO ONE (19:43)
== END 2024-07-16 22:09 | disposition home or self-care (01) ==
LOC: EMS 18:41
DX: F41.0 Panic disorder [episodic paroxysmal anxiety] (principal); F25.0 Schizoaffective disorder, bipolar type; F12.90 Cannabis use, unspecified, uncomplicated; F17.210 Nicotine dependence, cigarettes, uncomplicated; F15.10 Other stimulant abuse, uncomplicated; Z88.1 Allergy status to other antibiotic agents; Z88.2 Allergy status to sulfonamides
CPT/HCPCS: 99283

== ENCOUNTER 2024-07-17 19:41 | Emergency (ER) | payer MEDICAID ==
[~2024-07-17] VITALS: Ht 172.7 cm; Wt 72.0 kg
[2024-07-17 19:46] VITALS: TEMP 98.8
[2024-07-18 01:53] VITALS: BP 138/90; PULSE 104; RESP 18; O2SAT 97
[2024-07-18] MEDS: LORazepam 1 MG TABLET PO ONE (02:10)
== END 2024-07-18 02:25 | disposition home or self-care (01) ==
LOC: EMS 19:41
DX: F41.9 Anxiety disorder, unspecified (principal); F15.10 Other stimulant abuse, uncomplicated; F17.210 Nicotine dependence, cigarettes, uncomplicated; F12.90 Cannabis use, unspecified, uncomplicated; F20.9 Schizophrenia, unspecified; Z88.1 Allergy status to other antibiotic agents; Z88.2 Allergy status to sulfonamides
CPT/HCPCS: 99283

== ENCOUNTER 2024-07-22 18:52 | Emergency (ER) | payer MEDICAID ==
[~2024-07-22] VITALS: Ht 180.3 cm; Wt 77.2 kg
[~2024-07-22 18:52] MED LIST changes: -HYDR-4808 PO
[2024-07-22 19:11] VITALS: BP 150/80; PULSE 92; RESP 18; TEMP 97.1; O2SAT 96
== END 2024-07-22 21:30 | disposition left against medical advice (07) ==
LOC: EMS 18:52
DX: F41.9 Anxiety disorder, unspecified (principal); Z53.21 Procedure and treatment not carried out due to patient leaving prior to being seen by health care provider

== ENCOUNTER 2024-10-14 05:29 | Emergency (ER) | payer MEDICAID ==
[~2024-10-14] VITALS: Ht 170.2 cm; Wt 72.0 kg
[2024-10-14 05:31] VITALS: TEMP 99
[2024-10-14 06:01] LABS: COVID AG,FIA SOURCE NASAL SWAB
[2024-10-14 06:02] LABS: BASOPHILS % (AUTO) 0.8 % (0.0-2.0); EOSINOPHILS % (AUTO) 0.4 % (1.0-6.0); HEMATOCRIT 42.1 % (41-53); HEMOGLOBIN 14.3 g/dL (13.5-17.5); LYMPHOCYTES % (AUTO) 23.7 % (22.0-44.0); MEAN CORPUSCULAR HEMOGLOBIN 32.1 pg (26.0-34.0); MEAN CORPUSCULAR VOLUME 94 fL (80-100); MONOCYTES # (AUTO) 0.6 K/uL (0.1-1.0); MONOCYTES % (AUTO) 14.3 % (2.0-9.0); NEUTROPHILS # (AUTO) 2.5 K/uL (1.8-7.7); NEUTROPHILS % (AUTO) 60.8 % (40.0-70.0); PLATELET COUNT (AUTO) 263 K/uL (150-450); RED BLOOD CELL COUNT(AUTO) 4.46 MIL/uL (4.50-5.90); WHITE BLOOD COUNT (AUTO) 4.1 K/uL (4.5-11.0)
[2024-10-14 06:13] LABS: ANION GAP 7 mmol/L (8-16); CALCIUM, TOTAL 8.4 mg/dL (8.8-10.5); CARBON DIOXIDE 31 mmol/L (22-29); CHLORIDE 101 mmol/L (98-107); CREATININE 1.33 mg/dL (0.60-1.30); GLOMERULAR FILTR. RATE CALC > 60 mL/min (>60); GLUCOSE,RANDOM 84 mg/dL (70-110); POTASSIUM 3.7 mmol/L (3.5-5.1); SODIUM SERUM 139 mmol/L (136-145); UREA NITROGEN, BLOOD 15 mg/dL (7-18)
[2024-10-14 07:02] LABS: SARS-COV2 (COVID) ANTIGEN,FIA Negative (Negative)
[2024-10-14 07:06] LABS: INFLUENZA TYPE A POSITIVE FOR TYPE A (NEGATIVE)
[2024-10-14 07:07] LABS: INFLUENZA TYPE B NEGATIVE FOR TYPE B (NEGATIVE)
[2024-10-14] MEDS ORDERED: OSEL75CA45 PO (07:08)
[2024-10-14 07:22] VITALS: BP 105/66; PULSE 90; RESP 16; O2SAT 97
== END 2024-10-14 08:02 | disposition home or self-care (01) ==
LOC: EMS 05:29
DX: J11.1 Influenza due to unidentified influenza virus with other respiratory manifestations (principal); F41.9 Anxiety disorder, unspecified; F20.9 Schizophrenia, unspecified; F31.9 Bipolar disorder, unspecified; F12.90 Cannabis use, unspecified, uncomplicated; F15.90 Other stimulant use, unspecified, uncomplicated; F17.210 Nicotine dependence, cigarettes, uncomplicated; Z88.1 Allergy status to other antibiotic agents; Z88.2 Allergy status to sulfonamides; Z20.822 Contact with and (suspected) exposure to COVID-19
CPT/HCPCS: 71045; 80048; 85025; 87804; 99284; 36415-L1; 36415-TC

== ENCOUNTER 2025-03-17 07:30 | Emergency (ER) | payer MEDICAID ==
[~2025-03-17] VITALS: Ht 175.3 cm; Wt 71.5 kg
[~2025-03-17 07:30] MED LIST changes: +OSEL75CA45 PO
[2025-03-17 07:34] VITALS: BP 133/83; PULSE 65; RESP 17; TEMP 98; O2SAT 99
[2025-03-17] MEDS: ONDANSETRON HCL 4 MG/2 ML VIAL IVP ONE (08:00)
[2025-03-17] MEDS: SODIUM CHLORIDE 0.9% 1,000 ML IV ONE (08:01)
[2025-03-17 08:20] LABS: BASOPHILS % (AUTO) 0.5 % (0.0-2.0); EOSINOPHILS % (AUTO) 3.3 % (1.0-6.0); HEMATOCRIT 40.8 % (41-53); HEMOGLOBIN 13.5 g/dL (13.5-17.5); LYMPHOCYTES # (AUTO) 1.6 K/uL (1.0-4.8); MEAN CORPUSCULAR HEMOGLOBIN 31.6 pg (26.0-34.0); MEAN CORPUSCULAR HGB CONC 33.2 G/dL (31.0-37.0); MEAN CORPUSCULAR VOLUME 95 fL (80-100); MONOCYTES # (AUTO) 0.7 K/uL (0.1-1.0); MONOCYTES % (AUTO) 8.7 % (2.0-9.0); NEUTROPHILS # (AUTO) 5.6 K/uL (1.8-7.7); NEUTROPHILS % (AUTO) 68.5 % (40.0-70.0); PLATELET COUNT (AUTO) 282 K/uL (150-450); RED BLOOD CELL COUNT(AUTO) 4.27 MIL/uL (4.50-5.90); RED CELL DISTRIBUTION WIDTH 13.8 % (11.5-14.5); WHITE BLOOD COUNT (AUTO) 8.2 K/uL (4.5-11.0)
[2025-03-17 08:25] LABS: ANION GAP 4 mmol/L (8-16); CALCIUM, TOTAL 8.2 mg/dL (8.8-10.5); CARBON DIOXIDE 30 mmol/L (22-29); CHLORIDE 107 mmol/L (98-107); CREATININE 0.79 mg/dL (0.60-1.30); GLOMERULAR FILTR. RATE CALC > 60 mL/min (>60); GLUCOSE,RANDOM 67 mg/dL (70-110); POTASSIUM 3.7 mmol/L (3.5-5.1); SODIUM SERUM 141 mmol/L (136-145); UREA NITROGEN, BLOOD 8 mg/dL (7-18)
[2025-03-17 09:35] LABS: APPEARANCE,URINE CLEAR (CLEAR); BILIRUBIN,URINE NEGATIVE (NEGATIVE); COLOR,URINE LIGHT YELLOW (YELLOW); GLUCOSE, URINE (UA) NEGATIVE (NEGATIVE); KETONES,URINE NEGATIVE (NEGATIVE); LEUKOCYTE ESTERASE ,URINE NEGATIVE (NEGATIVE); NITRATE,URINE NEGATIVE (NEGATIVE); OCCULT BLOOD,URINE NEGATIVE (NEGATIVE); PROTEIN,URINE NEGATIVE (NEGATIVE); SPECIFIC GRAVITIY, URINE 1.019 (1.003-1.030); UROBILINOGEN,URINE <=1.0 mg/dL (<=1.0)
[2025-03-17 09:41] LABS: ALCOHOL, URINE DRUG SCREEN NEGATIVE (NEGATIVE); AMPHET/METH SCREEN,URINE POSITIVE (NEGATIVE); BARBITURATE SCREEN, URINE NEGATIVE (NEGATIVE); BENZODIAZEPINES SCREEN,URINE NEGATIVE (NEGATIVE); CANNABINOID SCREEN,URINE POSITIVE (NEGATIVE); COCAINE SCREEN,URINE NEGATIVE (NEGATIVE); METHADONE SCREEN, URINE NEGATIVE (NEGATIVE); OPIATE SCREEN,URINE NEGATIVE (NEGATIVE); PHENCYCLIDINE SCREEN,URINE NEGATIVE (NEGATIVE)
== END 2025-03-17 10:18 | disposition left against medical advice (07) ==
LOC: EMS 07:30
DX: R11.2 Nausea with vomiting, unspecified (principal); K21.9 Gastro-esophageal reflux disease without esophagitis; F17.210 Nicotine dependence, cigarettes, uncomplicated; F12.90 Cannabis use, unspecified, uncomplicated; K52.9 Noninfective gastroenteritis and colitis, unspecified; Z88.1 Allergy status to other antibiotic agents; Z88.2 Allergy status to sulfonamides; Z79.899 Other long term (current) drug therapy; Z98.890 Other specified postprocedural states
CPT/HCPCS: 99283; 96374; 96361; 80048; 81003; 85025; 36415; 80307; G0480; J2405; J7030; 82962